=== PATIENT | female | born 1980 | race Caucasian/White ===

== ENCOUNTER 2017-01-05 11:56 | Outpatient (CLI) | payer OTHER ==
[2017-01-05 13:51] LABS: Hematocrit 43.8 % (36.0-47.0); Mean Platelet Volume 10.2 fL (7.4-10.4); Red Blood Cell (RBC) Count 4.62 mill/uL (4.20-5.40); White Blood Cell (WBC) Count 5.1 thou/uL (4.8-10.8)
== END 2017-01-05 11:57 | disposition home or self-care (01) ==
LOC: LABBT 11:56
PROVIDERS: ATTEND Obstetrics & Gynecology
DX: Z01.812 Encounter for preprocedural laboratory examination (principal); N81.2 Incomplete uterovaginal prolapse
CPT/HCPCS: 84703; 85027; 86850; 86900; 86901

== ENCOUNTER 2017-01-05 12:00 | Inpatient (IN) | payer OTHER ==
--- NOTE | 2017-01-05 05:50 | HP ---
She is set for surgery on 01/06/2017. HISTORY OF PRESENT ILLNESS: Ms. Lopez is a 36-year-old white female, G2, P2, prior vaginal deliveri es x2, who has been having increasing issues with pelvic prolapse symptoms. She describes as a bulg e noted in the vagina and also having heavy menstrual flow. She reports difficult to retain a tampo n in her vagina due to the prolapse issues. She gets low back pain with prolonged standing and also on her menses and she has been using nonsteroidals. She also reports loss of urine with stress pro voked situations with hard cough, and also exercise. She has no urgency or overactive bladder sympt oms. She has completed fertility. PAST MEDICAL HISTORY: She has occasional migraine headaches. PAST SURGICAL HISTORY: Ureteral reflux surgery as a child, breast augmentation, and third molar ext ractions. 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 She is a non-smoker. No excessive alcohol use. ALLERGIES: To LATEX, MINOCYCLINE, and SULFA DRUGS. FAMILY HISTORY: Significant for breast cancer in her grandmother and essential hypertension in her grandparents. PHYSICAL EXAMINATION: VITAL SIGNS: Her blood pressure is 100/70, pulse is 67 and regular, respirations 18. Height 65 inc hes, weight 157 pounds, with a BMI of 26.1. HEENT: Within normal limits. CHEST: Clear to auscultation. HEART: Regular rate and rhythm. S1, S2 heart sounds. No murmurs, rubs, or gallops. BREASTS: Revealed no masses. She has bilateral implants present. ABDOMEN: Soft, nontender, nondistended with no palpable masses. PELVIC: She has normal external female genitalia. She does have a grade III cystocele and a grade III rectocele. Cervix had no lesions. Recent Pap smear with HPV was negative. Her uterus was not enlarged, grade II prolapse, nontender. Adnexa were nontender with no masses. ASSESSMENT: This is a 36-year-old white female, G2, P2 with symptomatic grade III cystocele, grade II uterine prolapse, and grade III rectocele with genuine stress incontinence. PLAN: Proceed with robotic-assisted laparoscopic vaginal hysterectomy and anterior and posterior re pair. We will also perform a Solyx TVT for the genuine stress incontinence issues. Risks and benef its of the procedure have been discussed in detail. She is set for surgery on 01/06/2017.
[2017-01-05 12:27] VITALS: BMI 25.0
[2017-01-06] MEDS ORDERED: Midazolam HCl 2 mg/2 ml Vial ONE ×2 (10:15→10:35)
[2017-01-06] MEDS ORDERED: Fentanyl 250 MCG/5 ML VIAL ONE (10:18)
[2017-01-06] MEDS ORDERED: Bupivacaine PF 0.5% 30 ML VIAL ONE (10:38)
[2017-01-06] MEDS ORDERED: Lidocaine 1% w/Epinephrine 1:200K 30 ML VIAL ONE (10:38)
[2017-01-06] MEDS ORDERED: Lidocaine 2% PF 10 ML AMP (For Epidural Use) ONE (11:01)
[2017-01-06] MEDS ORDERED: Ketorolac Tromethamine 30 MG/ML VIAL ONE (11:01)
[2017-01-06] MEDS ORDERED: ePHEDrine/0.9% NaCl/PF SYRINGE 50 mg/10 ml ONE (11:01)
[2017-01-06] MEDS ORDERED: Dexamethasone 20 MG/5 ML VIAL ONE (11:01)
[2017-01-06] MEDS ORDERED: Propofol 200 MG/20 ML VIAL ONE (11:01)
[2017-01-06] MEDS ORDERED: Ondansetron HCl/PF 4 MG/2 ML Vial ONE (11:01)
[2017-01-06] MEDS ORDERED: Metoclopramide HCl 10 MG/2 ML VIAL ONE (11:01)
[2017-01-06] MEDS ORDERED: HYDROmorphone 2 MG/ML VIAL SLOW IVP PRN (14:02)
[2017-01-06] MEDS ORDERED: Promethazine HCl 25 MG/ML VIAL IM PRN ×2 (14:02→14:43)
[2017-01-06] MEDS ORDERED: Promethazine HCl 25 MG/ML VIAL SLOW IVP PRN (14:02)
[2017-01-06] MEDS ORDERED: Ondansetron HCl/PF 4 MG/2 ML Vial IVP PRN ×2 (14:02→14:43)
[2017-01-06] MEDS ORDERED: Promethazine HCl 25 MG/ML VIAL ONE (14:25)
[2017-01-06] MEDS ORDERED: Fentanyl 100 MCG/2 ML VIAL ONE (14:29)
[2017-01-06] MEDS ORDERED: traMADol HCl 50 MG TAB PO PRN ×2 (14:43)
[2017-01-06] MEDS ORDERED: diphenhydrAMINE HCl 25 MG CAP PO PRN (14:43)
[2017-01-06] MEDS ORDERED: Zolpidem Tartrate 5 MG TAB PO PRN (14:43)
[2017-01-06] MEDS ORDERED: Bisacodyl 10 MG SUPP PR PRN (14:43)
[2017-01-06] MEDS ORDERED: Morphine Sulfate 2 MG/ML SYRINGE SLOW IVP PRN (15:29)
[2017-01-06] MEDS: Lactated Ringer's 1,000 ML IV SCH ×3 (15:58→20:09)
[2017-01-06] MEDS: Acetaminophen 1,000 MG in Premix Bag 1 BAG IVPB SCH (18:52)
[2017-01-06] MEDS: Ketorolac Tromethamine 30 MG/ML VIAL IVP SCH (18:52)
[2017-01-07] MEDS: Ketorolac Tromethamine 30 MG/ML VIAL IVP SCH ×2 (00:24→06:17)
[2017-01-07] MEDS: Acetaminophen 1,000 MG in Premix Bag 1 BAG IVPB SCH ×3 (00:26→11:53)
--- NOTE | 2017-01-07 01:12 | OP ---
DATE OF SURGERY: 01/06/2017 PREOPERATIVE DIAGNOSES: 1. A 36-year-old white female G2, P2 with symptomatic grade III cystocele and rectocele and grade I I uterine prolapse. 2. Genuine stress incontinence. POSTOPERATIVE DIAGNOSES: 1. A 36-year-old white female G2, P2 with symptomatic grade III cystocele and rectocele and grade I I uterine prolapse. 2. Genuine stress incontinence. PROCEDURE PERFORMED: 1. Robotic-assisted laparoscopic vaginal hysterectomy and bilateral salpingectomy. 2. Anterior and posterior repair with perineoplasty. 3. Solyx TVT procedure. SURGEON: Wanda Shelley M.D. DOOR TO DOOR SALESPERSON SURGEON: Lorena Marin M.D. ANESTHESIA: General endotracheal. ESTIMATED BLOOD LOSS: 150 mL. COMPLICATIONS: None. ANTIBIOTICS: Two grams Ancef. PATHOLOGY: Uterus, cervix, and bilateral fallopian tubes. FINDINGS: 1. Normal appearing left fallopian tubes, ovaries, and uterus. 2. Clear urine present in Beltran catheter post-procedure and bilateral peristalsis noted posthystere ctomy procedure. DISPOSITION: To the recovery room, stable. DESCRIPTION OF OPERATIVE PROCEDURE: The patient previously received informed consent in regards to surgery. She was taken back to the operating room where she received a general endotracheal anesthe tic agent without complications. She was placed in the dorsal lithotomy position with the use of Al lee stirrups, prepped and draped in usual sterile fashion. Beltran catheter had been placed. At this time, a side-arm speculum was placed in the vagina and a single-tooth tenaculum was attached to the cervix. The uterus sounded to 8 cm. A size 8 cm RADHA uterine manipulator was then selected with a 4.0 cm cervical cup. Tenaculum and speculum were removed after the manipulator was placed. Attent ion was then turned to the abdomen where perspective trocar sites were infiltrated with 0.5% Marcain e with epinephrine. A 12 mm infraumbilical incision was made. Veress needle was entered into the p eritoneal cavity. Patient pressure was noted to be less than 5 mmHg. The abdomen was then insufflat ed to patient pressure of 15 and approximately 4.5 liters of carbon dioxide gas. The trocars was th en placed and the robotic laparoscope was introduced through the trocar sleeve confirming proper ent ry. Additional 8 mm robotic trocars were placed in each bilateral lower quadrant along with an 11 m m right upper quadrant licensed occupational therapy assistant port. The patient was placed in deep Trendelenburg and the robot w as docked in usual fashion. I then proceeded to carry out the procedure from the operative console where my assistants remained at the bedside. The uterus was elevated. The left fallopian tube was grasped by my licensed occupational therapy assistant with an atraumatic gra sper. The mesosalpinx of the left fallopian tube was then coagulated and transected with bipolar fe nestrated cautery and the monopolar scissors removing the left fallopian tube. This was brought out through the right upper quadrant port. The left uterine ovarian ligament was then coagulated with bipolar fenestrated and transected. Serial coagulation of the broad ligament, hugging close to uter ine specimen was then carried out with bipolar fenestrated cautery until the left round ligament was reached. It was coagulated and transected and then the anterior leaf of the broad ligament was ent ered and the vesicouterine peritoneum was incised in a layering technique dissecting the bladder atr aumatically past the cervical vaginal junction, which was identified by the bulge of the cervical cu p manipulator. Uterine vessels were skeletonized on the left side. These were coagulated internal cervical os region. This was carried out in likewise fashion on the right side of the uterus again removing the right fallopian tube and removing that through the right upper quadrant port. The righ t uteroovarian ligament was coagulated and transected . Broad ligament was coagulated and small sected until the right round ligament was reached. It was coagulated and transected with monopolar scissors. The anterior cul-de-sac again was entered and the vesicouterine peritoneum was dissected in a layering technique past the cervical cup, which again was readily visible in its indentation. The right uterine vessels were skeletonized and coagulated internal cervical os region. The remaind er of the cardinal ligaments were then coagulated and transected and the posterior colpotomy region was layered dissected the peritoneum away from this site. Once this had been completed, the anterio r colpotomy was then made starting from 12 to 3 and 12 and 9 o'clock in similar fashion. Coagulatin g inside the cup of the uterine vessels at 3 and 9 o'clock position and the completion of the colpot jaycee from 6-9 and 6-3 and likewise fashion. The uterus was then brought into the vaginal vault. The pedicle sites were again inspected and hemostasis confirmed. Clear urine was draining from the Fol ey catheter and the bladder was watertight fluid distention of the bladder, approximately 250 mL. The robot was then undocked. Trocar sleeves were removed. The fascial defect in the infraumbilical area was closed with a vwovfv-qo-xtkem stitch of 0 Vicryl. The remainder of the trocar sites were closed with Monocryl 4-0 and Dermabond. Attention was then turned to the vaginal portion of the surgery. The patient was placed in more sev ere dorsal lithotomy position allowing for vaginal surgery. A weighted speculum was placed in the v agina. The vaginal cuff was grasped with 2 Allis clamps. A 2-0 Vicryl sutures were placed in the v aginal angles and these were secured with a tagged for later identification. The posterior vaginal cuff was run with interrupted uypytb-[id number]-faepf sutures for hemostasis. Next, the anterior repair was performed. Two Allis clamps were placed at the angles of the anterior vaginal mucosa. The anterio r vaginal mucosa was then infiltrated with 1% lidocaine with epinephrine approximately 10 mLs. A ve rtical incision was made in the anterior vaginal mucosa approximately 2.5 cm from the urethral meatu s. The edges of the vaginal mucosa were grasped at this time with Allis[place] clamps and the endope lvic fascia was dissected bluntly and sharply from the anterior vaginal mucosa, reducing the cystoce le defect. Once this had been adequately reduced, the endopelvic fascia was replicated in the midli ne, reducing the cystocele defect with 0 Vicryl suture and mattress sutures with fashion. Hemostasi s was assured. The anterior vaginal mucosa was then closed with interrupted 2-0 Vicryl nitlpy-me-wn ght stitches for hemostasis. The Solyx TVT procedure was then carried out after the mid urethra was identified by palpation of th e Beltran bulb at the UV angle. Two Allis clamps were placed superiorly and inferiorly to the mid ure thral area, and the area was infiltrated with 1% lidocaine with epinephrine. A 1.5 cm vertical midl ine incision over the mid urethral vaginal mucosa site was made with a scalpel blade. The edges wer e grasped with two Allis clamps and submucosal dissection with Metzenbaum scissors were carried out under the vagina heading towards the direction of the inferior pubic ramus and symphysis pubis bilat erally. The space of Retzius was punctured, the Solyx device was then assembled and the trocar Jennifer x device was placed on the patient's left side through the previously dissected submucosal tunnel, a nchoring the device underneath the symphysis pubis and inferior pubic ramus muscle tissue. This was then repeated on the patient's right side snugly applying the Solyx mesh tape in the mid urethral s pace. This area that was then closed the vaginal mucosa over the mid urethra was closed with interr upted ejjrxe-ac-jbmzp sutures of 2-0 Vicryl. Hemostasis was assured. The vaginal cuff was then closed with interrupted 0 Vicryl sutures in a vertical fashion. Once this was accomplished, the posterior repair was carried out. The edges of the posterior introitus were grasped at the 4 and 8 o'clock position. The posterior vaginal mucosa was infiltrated with 1% lidoc pradeep with epinephrine up to the vaginal cuff line. An inverted triangular tissue was then cut in th e perineal area. The scalpel blade and then the midline incision in the posterior vaginal mucosa wa s carried out past the rectocele defect. The edges of the vaginal mucosa were grasped with Allis Ad air clamps for traction and the rectocele defect was dissected both bluntly and sharply dissecting e ndopelvic fascia. The endopelvic fascia was caudally was then identified in the upper vaginal vault and 0 Vicryl sutures were placed plicating the endopelvic fascia, midline reducing the rectocele de fect and this was carried out towards the vaginal introitus until the defect was repaired. Hemostas is was assured. A rectal exam was performed and no evidence of any suture placement was noted and t he rectocele defect appeared adequately fixed on exam. The dirty glove was removed and then the pos terior vaginal mucosa was closed with interrupted 2-0 Vicryl sutures incorporating the endopelvic fa scia, creating the space. Once this was accomplished, a moistened Kerlix was placed in the vag inal vault for a pressure dressing and then the patient was awakened from anesthesia. Clear urine w as draining from the Beltran catheter and she was transferred to recovery room in stable condition.
[2017-01-07] MEDS: Lactated Ringer's 1,000 ML IV SCH ×2 (05:01→14:47)
[2017-01-07 05:30] LABS: Hematocrit 42.2 % (36.0-47.0); Mean Platelet Volume 10.2 fL (7.4-10.4)
[2017-01-07] MEDS ORDERED: Multivit, Therapeutic 1 TAB PO SCH (09:00)
[2017-01-07] MEDS ORDERED: Polyethylene Glycol 3350 17 GM Packet PO SCH (09:00)
[2017-01-07] MEDS ORDERED: Fluticasone Propionate Nasal Spray 16 gm Bottle NASAL SCH (09:00)
[2017-01-07 11:37] VITALS: BP 98/53; TEMP 98.4
[2017-01-07] MEDS ORDERED: Ibuprofen 800 MG TAB PO SCH (12:00)
[2017-01-07] MEDS ORDERED: Acetaminophen 325 MG TAB PO PRN (22:00)
--- NOTE | 2017-01-07 22:31 | DIS ---
DATE OF ADMISSION: 01/06/2017 DATE OF DISCHARGE: 01/07/2017 DIAGNOSES: 1. Grade 3 cystocele and rectocele. 2. Grade 2 uterine prolapse. 3. Genuine stress incontinence. PROCEDURES PERFORMED: 1. Robotic-assisted total laparoscopic hysterectomy, bilateral salpingectomy. 2. Anterior and posterior repair with perineoplasty. 3. Solyx TVT procedure. SUMMARY OF HOSPITAL COURSE: Ms. Lopez is a 37-year-old white female, G2, P2, who had symptomatic pe lvic organ prolapse. She underwent uncomplicated robotic TLH with bilateral salpingectomy, anterior and posterior repair with perineoplasty. Solyx TVT procedure on 01/06/2017. The patient did well postoperatively. She has had adequate pain control with p.o. medications and she was ambulating and voiding without difficulty on postop day #1. Her voids were over 400 and with less than 100 mL of postvoid residuals on two checks. She was hemodynamically stable. Her postoperative day #1 hematoc rit was 40%. She was discharged to home the afternoon on postop day #1 with discharge medications. Tramadol 50 mg every 6 hours, ibuprofen scli-der-fiiqsai as directed, and Colace stool softeners ov vx-tkp-xxzamyr as directed. She has a followup in 2nd and 6th weeks postoperatively and Pathology w ill be reviewed when it is available, hopefully over the next few days.
[2017-01-11] MEDS ORDERED: Ibuprofen 800 MG TAB PO SCH (21:00)
== END 2017-01-07 15:35 | disposition home or self-care (01) | DRG 743 ==
LOC: SURG A 01-06 08:09 → 3SE 01-06 14:39
PROVIDERS: ADMIT Obstetrics & Gynecology; ATTEND Obstetrics & Gynecology
PROC: 0UT9FZZ Resection of Uterus, Via Natural or Artificial Opening With Percutaneous Endoscopic Assistance (ICD-10-PCS; principal; 2017-01-06)
PROC: 0UT7FZZ Resection of Bilateral Fallopian Tubes, Via Natural or Artificial Opening With Percutaneous Endoscopic Assistance (ICD-10-PCS; 2017-01-06)
PROC: 0JQC0ZZ Repair Pelvic Region Subcutaneous Tissue and Fascia, Open Approach (ICD-10-PCS; 2017-01-06)
PROC: 0JQC0ZZ Repair Pelvic Region Subcutaneous Tissue and Fascia, Open Approach (ICD-10-PCS; 2017-01-06)
PROC: 8E0W0CZ Robotic Assisted Procedure of Trunk Region, Open Approach (ICD-10-PCS; 2017-01-06)
DX: N81.2 Incomplete uterovaginal prolapse (principal); N39.3 Stress incontinence (female) (male)
CPT/HCPCS: 36415; 85027; 88307; C1781; J0131; J1100; J1170; J1885; J2001; J2250; J2270; J2405; J2550; J2704; J2765; J3010; S0020

== ENCOUNTER 2018-04-28 14:37 | Outpatient (CLI) | payer OTHER | END 2018-04-28 14:38 | disposition home or self-care (01) | LOC: BICMAMMO 14:37 | PROVIDERS: ATTEND Obstetrics & Gynecology | DX: Z12.31 Encounter for screening mammogram for malignant neoplasm of breast (principal) | CPT/HCPCS: 77063; 77067 ==

== ENCOUNTER 2019-04-29 10:54 | Outpatient (CLI) | payer OTHER ==
--- NOTE | 2019-05-05 13:27 | MMO ---
Bilateral MAMMO Bilat Screen [facility]. CLINICAL HISTORY: Patient is 39 years old and is seen for screening. The patient has the following family history of breast cancer: paternal grandmother, TWICE and great aunt. The patient has no personal history of cancer. The patient has a history of bilateral Implants in 2007. VIEWS: The views performed were: bilateral craniocaudal; bilateral craniocaudal with tomosynthesis; bilateral mediolateral oblique; bilateral mediolateral oblique with tomosynthesis; and bilateral Implant displaced with tomosynthesis. FILMS COMPARED: The present examination has been compared to prior imaging studies performed at [facility] on 01/02/2017 and 04/28/2018. This study has been interpreted with the assistance of computer-aided detection. MAMMOGRAM FINDINGS: There are scattered fibroglandular densities. There are no suspicious masses, suspicious calcifications, or new areas of architectural distortion. Normal implants are present. IMPRESSION: THERE IS NO MAMMOGRAPHIC EVIDENCE OF MALIGNANCY. A ROUTINE FOLLOW-UP MAMMOGRAM IN 1 YEAR IS RECOMMENDED. THE RESULTS OF THIS EXAM WERE SENT TO THE PATIENT. ACR BI-RADS Category 1 - Negative MAMMOGRAPHY NOTE: 1. A negative mammogram report should not delay a biopsy if a dominant of clinically suspicious mass is present. 2. Approximately 10% to 15% of breast cancers are not detected by mammography. 3. Adenosis and dense breasts may obscure an underlying neoplasm. Reported by: YOVANA FAN MD Electonically Signed: [id number]
== END 2019-04-29 10:55 | disposition home or self-care (01) ==
LOC: BICMAMMO 10:54
PROVIDERS: ATTEND Obstetrics & Gynecology
DX: Z12.31 Encounter for screening mammogram for malignant neoplasm of breast (principal); Z80.3 Family history of malignant neoplasm of breast; Z98.82 Breast implant status
CPT/HCPCS: 77063; 77067

== ENCOUNTER 2020-05-02 13:21 | Outpatient (CLI) | payer OTHER ==
--- NOTE | 2020-05-02 13:54 | MMO ---
Bilateral MAMMO Bilat Screen [facility]. CLINICAL HISTORY: Patient is 40 years old and is seen for screening. The patient has the following family history of breast cancer: great aunt and paternal grandmother, TWICE. The patient has no personal history of cancer. The patient has a history of bilateral Implants in August,, bilateral mastopexy in August,, bilateral Explantation in August, and bilateral Implants in 2007. VIEWS: The views performed were: bilateral craniocaudal; bilateral craniocaudal with tomosynthesis; bilateral mediolateral oblique; bilateral mediolateral oblique with tomosynthesis; and bilateral Implant displaced with tomosynthesis. FILMS COMPARED: The present examination has been compared to prior imaging studies performed at [facility] on 01/02/2017, 04/28/2018 and 04/29/2019. This study has been interpreted with the assistance of computer-aided detection. MAMMOGRAM FINDINGS: There are scattered fibroglandular densities. There are no suspicious masses, suspicious calcifications, or new areas of architectural distortion. IMPRESSION: THERE IS NO MAMMOGRAPHIC EVIDENCE OF MALIGNANCY. A ROUTINE FOLLOW-UP MAMMOGRAM IN 1 YEAR IS RECOMMENDED. THE RESULTS OF THIS EXAM WERE SENT TO THE PATIENT. ACR BI-RADS Category 1 - Negative MAMMOGRAPHY NOTE: 1. A negative mammogram report should not delay a biopsy if a dominant of clinically suspicious mass is present. 2. Approximately 10% to 15% of breast cancers are not detected by mammography. 3. Adenosis and dense breasts may obscure an underlying neoplasm. Reported by: XUAN PIPER MD Electonically Signed: [id number]
== END 2020-05-02 13:22 | disposition home or self-care (01) ==
LOC: BICMAMMO 13:21
PROVIDERS: ATTEND Obstetrics & Gynecology
DX: Z12.31 Encounter for screening mammogram for malignant neoplasm of breast (principal); Z80.3 Family history of malignant neoplasm of breast; Z98.82 Breast implant status
CPT/HCPCS: 77063; 77067

== ENCOUNTER 2020-09-13 15:56 | Inpatient (IN) | payer OTHER ==
[~2020-09-13 15:56] MED LIST: Iopamidol-370 76% 500 ML 1 ML ONE
[2020-09-13] MEDS ORDERED: Morphine 4 MG/ML VIAL ONE (16:47)
[2020-09-13] MEDS ORDERED: Ondansetron PF 4 MG/2 ML Vial ONE (16:57)
[2020-09-13 17:03] LABS: #Basophils 0.1 thou/uL (0.0-0.2); #Eosinphils 0.1 thou/uL (0.0-0.7); #Lymphocytes 1.4 thou/uL (1.20-3.40); #Monocytes 1.6 thou/uL (0.11-0.59); #Neutrophils 12.8 thou/uL (1.40-6.50); %Basophils 0.5 % (0.0-1.0); %Eosinophils 0.4 % (0.0-10.0); %Lymphocytes 8.6 % (21.0-51.0); %Monocytes 10.2 % (0.0-10.0); %Neutrophils 80.3 % (42.0-75.0); Mean Corpuscular HGB CONC 34.4 g/dL (32.0-36.0); Mean Corpuscular Hemoglobin 32.3 pg (27.0-31.0); Mean Platelet Volume 9.2 fL (7.4-10.4); Platelet Count 154 thou/uL (130-400); RBC Distribution Width 11.5 % (11.5-14.5); Red Blood Cell (RBC) Count 4.03 mill/uL (4.20-5.40)
[2020-09-13 17:18] LABS: Bilirubin Negative (Negative); Blood, Urine Negative (Negative); Clarity Turbid (Clear); Glucose, Urine (Dipstick) Normal (Negative); Ketone, Urine Negative (Negative); Leukocyte Negative Leu/uL (Negative); Nitrite Negative (Negative); Protein, Urine (Dipstick) Negative (Neg-Trace); Specific Gravity, Urine 1.019 (1.002-1.036); pH, Urine 7.5 (5.0-9.0)
[2020-09-13 17:25] LABS: ALT (SGPT) 11 U/L (8-55); AST (SGOT) 15 U/L (5-34); Albumin 4.2 g/dL (3.5-5.0); Alkaline Phosphatase 68 U/L (40-110); Anion Gap 10 mmol/L (10-20); BUN (Urea Nitrogen) 11 mg/dL (7.0-18.7); Bilirubin, Total 0.7 mg/dL (0.2-1.2); Calc. Creatinine Clearance 0 mL/min (70-130); Calcium 9.3 mg/dL (7.8-10.44); Carbon Dioxide 28 mmol/L (22-29); Chloride 101 mmol/L (98-107); Globulin 3.1 g/dL (2.4-3.5); Glucose 104 mg/dL (70-105); Lipase 16 U/L (8-78); Potassium 3.4 mmol/L (3.5-5.1); Protein, Total 7.3 g/dL (6.0-8.3); Sodium 136 mmol/L (136-145)
[2020-09-13] MEDS ORDERED: Ketorolac Tromethamine 30 MG/ML VIAL ONE (18:28)
[2020-09-13] MEDS ORDERED: Piperacillin/Tazobactam 4.5 GM in Sodium Chloride 0.9% 100 ML IVPB SCH (18:30)
[2020-09-13 21:35] VITALS: BMI 26.4
[2020-09-13] MEDS: Piperacillin/Tazobactam 3.375 GM in Sodium Chloride 0.9% 100 ML IVPB SCH (22:09)
[2020-09-13] MEDS ORDERED: Citalopram 20 MG TAB PO SCH (23:30)
[2020-09-13] MEDS ORDERED: Loratadine 10 MG TAB PO PRN (23:34)
[2020-09-13] MEDS ORDERED: Promethazine 25 MG TAB PO PRN (23:35)
[2020-09-13] MEDS ORDERED: AMOXicillin 250 MG CAP PO SCH (23:45)
[2020-09-14] MEDS: Sodium Chloride 0.9% 1,000 ML IV SCH ×4 (00:29→22:28)
[2020-09-14] MEDS: Ketorolac Tromethamine 30 MG/ML VIAL IVP PRN ×4 (00:32→23:58)
[2020-09-14] MEDS: Piperacillin/Tazobactam 3.375 GM in Sodium Chloride 0.9% 100 ML IVPB SCH ×3 (06:08→23:59)
[2020-09-14] MEDS: Levothyroxine Sodium 50 MCG TAB PO SCH (06:08)
[2020-09-14] MEDS ORDERED: Spironolactone 25 MG TAB PO SCH ×2 (08:00→17:00)
[2020-09-14 08:08] LABS: #Eosinphils 0.1 thou/uL (0.0-0.7); #Lymphocytes 1.4 thou/uL (1.20-3.40); #Monocytes 1.1 thou/uL (0.11-0.59); #Neutrophils 8.6 thou/uL (1.40-6.50); %Basophils 0.3 % (0.0-1.0); %Eosinophils 0.8 % (0.0-10.0); %Lymphocytes 12.4 % (21.0-51.0); %Monocytes 10.2 % (0.0-10.0); %Neutrophils 76.3 % (42.0-75.0); Hemoglobin 10.8 g/dL (12.0-16.0); Mean Corpuscular HGB CONC 33.2 g/dL (32.0-36.0); Mean Corpuscular Hemoglobin 31.7 pg (27.0-31.0); Mean Corpuscular Volume 95.4 fL (78.0-98.0); Mean Platelet Volume 9.2 fL (7.4-10.4); Platelet Count 124 thou/uL (130-400); RBC Distribution Width 11.6 % (11.5-14.5); Red Blood Cell (RBC) Count 3.41 mill/uL (4.20-5.40); White Blood Cell (WBC) Count 11.2 thou/uL (4.8-10.8)
[2020-09-14 08:28] LABS: Anion Gap 8 mmol/L (10-20); BUN (Urea Nitrogen) 13 mg/dL (7.0-18.7); Calc. Creatinine Clearance 120 mL/min (70-130); Carbon Dioxide 24 mmol/L (22-29); Chloride 108 mmol/L (98-107); Glucose 93 mg/dL (70-105); Potassium 3.7 mmol/L (3.5-5.1); Sodium 136 mmol/L (136-145)
[2020-09-14] MEDS ORDERED: Piperacillin/Tazobactam 3.375 GM in Sodium Chloride 0.9% 100 ML IVPB SCH ×2 (09:00→12:00)
[2020-09-14] MEDS ORDERED: Docusate Calcium (SURFAK) 240 MG CAP PO SCH ×2 (09:00→21:00)
[2020-09-14] MEDS ORDERED: Polyethylene Glycol 3350 17 GM Packet PO SCH ×2 (09:00→21:00)
[2020-09-14] MEDS ORDERED: Citalopram 20 MG TAB PO SCH ×2 (09:00→21:00)
[2020-09-14] MEDS ORDERED: AMOXicillin 250 MG CAP PO SCH ×2 (09:00→21:00)
[2020-09-14] MEDS ORDERED: Morphine 4 MG/ML VIAL SLOW IVP PRN (19:35)
[2020-09-14] MEDS ORDERED: Morphine 2 MG/ML VIAL SLOW IVP PRN (19:35)
[2020-09-14] MEDS ORDERED: HYDROcodone/Acetaminophen 5/325 mg Tablet PO PRN ×2 (19:35)
[2020-09-14] MEDS ORDERED: traMADol HCl 50 MG TAB PO PRN ×2 (19:35)
[2020-09-14] MEDS ORDERED: Atorvastatin Calcium 20 MG TAB PO SCH (21:00)
[2020-09-15] MEDS ORDERED: Famotidine 20 MG TAB PO SCH ×2 (02:30→09:00)
[2020-09-15] MEDS ORDERED: Lidocaine 2% Viscous Solution 10 ML, Aluminum & Magnesium Hydroxide 30 ML SSW SCH (03:00)
[2020-09-15] MEDS: Sodium Chloride 0.9% 1,000 ML IV SCH (05:30)
[2020-09-15] MEDS: Ketorolac Tromethamine 30 MG/ML VIAL IVP PRN (05:30)
[2020-09-15] MEDS: Levothyroxine Sodium 50 MCG TAB PO SCH (05:30)
[2020-09-15 05:41] LABS: #Eosinphils 0.1 thou/uL (0.0-0.7); #Lymphocytes 1.5 thou/uL (1.20-3.40); #Neutrophils 8.4 thou/uL (1.40-6.50); %Basophils 0.4 % (0.0-1.0); %Eosinophils 0.9 % (0.0-10.0); %Lymphocytes 13.2 % (21.0-51.0); %Monocytes 9.1 % (0.0-10.0); %Neutrophils 76.4 % (42.0-75.0); Hemoglobin 10.6 g/dL (12.0-16.0); Mean Corpuscular HGB CONC 33.2 g/dL (32.0-36.0); Mean Corpuscular Hemoglobin 32.1 pg (27.0-31.0); Mean Corpuscular Volume 96.7 fL (78.0-98.0); Mean Platelet Volume 9.5 fL (7.4-10.4); Platelet Count 117 thou/uL (130-400); RBC Distribution Width 11.4 % (11.5-14.5); Red Blood Cell (RBC) Count 3.32 mill/uL (4.20-5.40)
[2020-09-15 06:02] LABS: Anion Gap 10 mmol/L (10-20); BUN (Urea Nitrogen) 7 mg/dL (7.0-18.7); Calc. Creatinine Clearance 120 mL/min (70-130); Calcium 7.8 mg/dL (7.8-10.44); Carbon Dioxide 21 mmol/L (22-29); Chloride 111 mmol/L (98-107); Glucose 102 mg/dL (70-105); Sodium 138 mmol/L (136-145)
[2020-09-15] MEDS: Piperacillin/Tazobactam 3.375 GM in Sodium Chloride 0.9% 100 ML IVPB SCH (08:28)
[2020-09-15 11:49] VITALS: BP 112/75; TEMP 98.3
== END 2020-09-15 15:13 | disposition short-term general hospital (02) | DRG 761 ==
LOC: ERS 15:56 → SURG B 18:37
PROVIDERS: ADMIT Surgery; ATTEND Surgery
DX: N83.512 Torsion of left ovary and ovarian pedicle (principal); N83.9 Noninflammatory disorder of ovary, fallopian tube and broad ligament, unspecified; E03.9 Hypothyroidism, unspecified; G43.909 Migraine, unspecified, not intractable, without status migrainosus; E78.5 Hyperlipidemia, unspecified; F41.9 Anxiety disorder, unspecified; K59.09 Other constipation; E28.2 Polycystic ovarian syndrome; Z90.710 Acquired absence of both cervix and uterus; Z87.440 Personal history of urinary (tract) infections; Z88.2 Allergy status to sulfonamides; Z88.8 Allergy status to other drugs, medicaments and biological substances; Z91.040 Latex allergy status; Z79.899 Other long term (current) drug therapy
CPT/HCPCS: 36415; 74177; 76856; 80048; 80053; 81003; 83605; 83690; 85025; 86304; 87040; 93005; 93010; 96365; 96374; 96375; J1885; J2270; J2405; J2543; J3490; Q9967

== ENCOUNTER 2021-03-10 12:01 | Observation (INO) | payer OTHER ==
[2021-03-10 12:46] LABS: #Basophils 0.1 thou/uL (0.0-0.2); #Eosinphils 0.1 thou/uL (0.0-0.7); #Lymphocytes 1.5 thou/uL (1.20-3.40); #Monocytes 0.7 thou/uL (0.11-0.59); #Neutrophils 5.9 thou/uL (1.40-6.50); %Basophils 1.1 % (0.0-1.0); %Eosinophils 1.3 % (0.0-10.0); %Lymphocytes 18.1 % (21.0-51.0); %Monocytes 8.5 % (0.0-10.0); Hemoglobin 14.5 g/dL (12.0-16.0); Mean Corpuscular HGB CONC 33.2 g/dL (32.0-36.0); Mean Corpuscular Hemoglobin 30.8 pg (27.0-31.0); Mean Corpuscular Volume 92.9 fL (78.0-98.0); Mean Platelet Volume 9.3 fL (7.4-10.4); Platelet Count 179 thou/uL (130-400); RBC Distribution Width 11.2 % (11.5-14.5); Red Blood Cell (RBC) Count 4.71 mill/uL (4.20-5.40); White Blood Cell (WBC) Count 8.3 thou/uL (4.8-10.8)
[2021-03-10] MEDS ORDERED: Morphine 4 MG/ML VIAL ONE (13:09)
[2021-03-10 13:12] LABS: ALT (SGPT) 16 U/L (8-55); AST (SGOT) 19 U/L (5-34); Albumin 4.2 g/dL (3.5-5.0); Alkaline Phosphatase 62 U/L (40-110); Anion Gap 17 mmol/L (10-20); BUN (Urea Nitrogen) 11 mg/dL (7.0-18.7); Calc. Creatinine Clearance 0 mL/min (70-130); Calcium 9.5 mg/dL (7.8-10.44); Carbon Dioxide 22 mmol/L (22-29); Chloride 101 mmol/L (98-107); Globulin 3.6 g/dL (2.4-3.5); Glucose 73 mg/dL (70-105); Lipase 17 U/L (8-78); Potassium 3.9 mmol/L (3.5-5.1); Protein, Total 7.8 g/dL (6.0-8.3); Sodium 136 mmol/L (136-145)
[2021-03-10] MEDS ORDERED: Piperacillin/Tazobactam 4.5 GM VIAL ONE (15:10)
[2021-03-10 15:38] LABS: Bilirubin 1+ (Negative); Blood, Urine Negative (Negative); Clarity Clear (Clear); Glucose, Urine (Dipstick) Normal (Negative); Ketone, Urine Greater than 150 mg/dL (Negative); Leukocyte Negative Leu/uL (Negative); Nitrite Negative (Negative); Protein, Urine (Dipstick) 30 mg/dL (Neg-Trace); RBC/HPF 0-3 HPF (0-3); Specific Gravity, Urine 1.025 (1.002-1.036); Urobilinogen 3 mg/dL (Less than 2); pH, Urine 5.5 (5.0-9.0)
[2021-03-10 15:39] LABS: Bacteria/HPF 1+ HPF (None Seen)
[2021-03-10] MEDS ORDERED: Ketorolac Tromethamine 30 MG/ML VIAL ONE (17:16)
[2021-03-10] MEDS ORDERED: Sodium Chloride 0.9% 10 ML ONE (18:05)
[2021-03-10] MEDS ORDERED: Midazolam HCl 2 mg/2 ml Vial ONE (18:17)
[2021-03-10] MEDS ORDERED: Fentanyl 100 MCG/2 ML VIAL ONE (18:17)
[2021-03-10] MEDS ORDERED: HYDROmorphone 2 MG/ML VIAL ONE (18:17)
[2021-03-10 18:26] LABS: SARS-CoV-2 NAA Rapid Test Not Detected (NotDetected)
[2021-03-10] MEDS ORDERED: EPINEPHrine 1 MG/ML AMP ONE (18:28)
[2021-03-10] MEDS ORDERED: Bupivacaine 0.25% 10 ML VIAL ONE (18:28)
[2021-03-10] MEDS ORDERED: Famotidine/PF 20 mg/2ml Vial ONE (18:56)
[2021-03-10] MEDS ORDERED: SUGAMMADEX SODIUM 200 MG/2 ML VIAL ONE (18:58)
[2021-03-10] MEDS ORDERED: Phenylephrine 10 MG/ML VIAL ONE (19:28)
[2021-03-10] MEDS ORDERED: Rocuronium Bromide 10 MG/ML (10ML VIAL) ONE (19:28)
[2021-03-10] MEDS ORDERED: Metoclopramide HCl 10 MG/2 ML VIAL ONE (19:28)
[2021-03-10] MEDS ORDERED: Glycopyrrolate 0.2 MG/ML 5 ML SYRINGE ONE (19:28)
[2021-03-10] MEDS ORDERED: Dexamethasone 20 MG/5 ML VIAL ONE (19:28)
[2021-03-10] MEDS ORDERED: Lidocaine 1% PF 5 ML VIAL ONE (19:28)
[2021-03-10] MEDS ORDERED: PROPOFOL 200 MG/20 ML VIAL ONE (19:28)
[2021-03-10] MEDS ORDERED: Ondansetron PF 4 MG/2 ML Vial ONE (19:28)
[2021-03-10] MEDS ORDERED: ePHEDrine 50 MG/ML VIAL ONE (19:28)
[2021-03-10] MEDS ORDERED: Meperidine HCl/PF 25 MG/ML VIAL SLOW IVP PRN (20:15)
[2021-03-10] MEDS ORDERED: Promethazine HCl 25 MG/ML VIAL IM PRN (20:15)
[2021-03-10] MEDS ORDERED: HYDROmorphone 2 MG/ML VIAL SLOW IVP PRN (20:15)
[2021-03-10] MEDS ORDERED: Ondansetron HCl/PF 4 MG/2 ML Vial IVP PRN (20:15)
[2021-03-10] MEDS ORDERED: Promethazine HCl 25 MG/ML VIAL IVPB PRN (20:15)
[2021-03-10] MEDS ORDERED: traMADol HCl 50 MG TAB ONE (21:26)
== END 2021-03-11 21:55 | disposition home or self-care (01) ==
LOC: ERS 12:01 → UNDOADMIN 15:56 → MSONC 15:56 → SURG A 19:20 → INTOOBSV 19:20 → SURG A 03-11 11:01
PROVIDERS: ADMIT Surgery; ATTEND Surgery
PROC: 0DTJ4ZZ Resection of Appendix, Percutaneous Endoscopic Approach (ICD-10-PCS; principal; 2021-03-10)
DX: K35.80 Unspecified acute appendicitis (principal); K38.8 Other specified diseases of appendix; E03.9 Hypothyroidism, unspecified; N30.20 Other chronic cystitis without hematuria; E28.2 Polycystic ovarian syndrome; E78.5 Hyperlipidemia, unspecified; Z79.2 Long term (current) use of antibiotics; Z79.899 Other long term (current) drug therapy; Z88.1 Allergy status to other antibiotic agents; Z88.2 Allergy status to sulfonamides; Z91.040 Latex allergy status; Z20.822 Contact with and (suspected) exposure to COVID-19
CPT/HCPCS: 36415; 74177; 80053; 81003; 81015; 83690; 85025; 88304; 96365; 96375; A4649; C1776; J0171; J1100; J1170; J1885; J2250; J2270; J2370; J2405; J2543; J2704; J2765; J3010; J3490; Q9967; S0020; S0028; U0002

== ENCOUNTER 2021-11-08 13:34 | Outpatient (CLI) | payer BC | END 2021-11-08 13:35 | disposition home or self-care (01) | LOC: BICMAMMO 13:34 | PROVIDERS: ATTEND Obstetrics & Gynecology | DX: Z12.31 Encounter for screening mammogram for malignant neoplasm of breast (principal); Z98.890 Other specified postprocedural states; Z98.82 Breast implant status; Z80.3 Family history of malignant neoplasm of breast | CPT/HCPCS: 77063; 77067 ==

== ENCOUNTER 2023-10-13 11:03 | Outpatient (CLI) | payer BC | END 2023-10-13 11:04 | disposition home or self-care (01) | LOC: BICMAMMO 11:03 | PROVIDERS: ATTEND Obstetrics & Gynecology | DX: Z12.31 Encounter for screening mammogram for malignant neoplasm of breast (principal); Z80.3 Family history of malignant neoplasm of breast; Z98.82 Breast implant status | CPT/HCPCS: 77063; 77067 ==